=== PATIENT | female | born 1955 | race Caucasian/White ===

== ENCOUNTER 2023-07-05 14:49 | Observation (INO) ==
[2023-07-05] MEDS ORDERED: Iodixanol (CONTRAST) 320 MG/ML 100 ML SDV IV ONE (15:32)
[2023-07-05 16:07] LABS: ABS Basophils 0.1 10^3/uL (0.0-0.1); ABS Lymphocytes 1.7 10^3/uL (1.0-4.8); ABS Monocytes 0.4 10^3/uL (0.0-0.9); ABS Neutrophils 5.6 10^3/uL (1.5-7.6); Eosinophil % 0.6 %; Hematocrit 41.5 % (35-45); Hemoglobin 13.9 g/dL (11.5-14.3); Mean Corpuscular Hgb Conc 33.5 g/dL (31-36); Mean Corpuscular Volume 92.4 fL (80-97); Mean Platelet Volume 7.7 fL (7.5-11.2); Platelet Count 224 10^3/uL (150-450); Red Blood Count 4.49 10^6/uL (3.63-4.92); Red Cell Distribution Width 13.3 % (12-17); White Blood Count 7.8 10^3/uL (3.8-11.8)
[2023-07-05 16:12] LABS: Activated Partial Thrombo Time 26.6 seconds (26.0-38.0); INR 1.08 (0.83-1.13)
[2023-07-05 16:28] LABS: Urine Appearance Clear; Urine Bacteria Absent (Absent); Urine Bilirubin Negative (Negative); Urine Blood 1+ (Negative); Urine Color Straw; Urine Glucose Negative (Negative); Urine Ketones Negative (Negative); Urine Nitrite Negative (Negative); Urine Protein Negative (Negative); Urine Red Blood Cell Trace(0-2/hpf) (Absent); Urine Specific Gravity 1.019 (1.002-1.030); Urine Squamous Epithelial Cell Present (Absent); Urine Urobilinogen Negative (Negative); Urine White Blood Cell Absent (Absent)
[2023-07-05] MEDS ORDERED: Lactated Ringers 1000 ml BAG 1,000 ML IV ONE (16:41)
[2023-07-05] MEDS ORDERED: Metoclopramide 5 MG/ML VIAL (10 mg) IV ONE (16:41)
[2023-07-05 16:53] LABS: Albumin 4.1 g/dL (3.2-5.2); Albumin/Globulin Ratio 1.4 (1-3); Creatinine, Serum 0.8 mg/dL (0.51-0.95); Indirect Bilirubin 0.4 mg/dL (0.3-1.0); Potassium 3.7 mmol/L (3.5-5.0); Total Bilirubin 0.4 mg/dL (0.2-1.0); Total Protein 7.1 g/dL (6.4-8.9); eGFR CKD-EPI 79.2 (>60)
[2023-07-05] MEDS ORDERED: Albuterol 2.5mg/3 ml (0.083%) NEB.SOLN INH PRN (18:53)
[2023-07-05] MEDS ORDERED: Polyethylene Glycol 3350 17 GM PACKET PO PRN (18:55)
[2023-07-05] MEDS ORDERED: Senna TAB 8.6 mg TAB PO PRN (18:55)
[2023-07-06 11:46] VITALS: BP 108/65
== END 2023-07-06 11:46 | disposition home or self-care (01) ==
LOC: ED 14:49 → EDHOLD 14:49
PROVIDERS: ADMIT Internal Medicine; ATTEND Internal Medicine